=== PATIENT | male | born 1970 | race Two or more races ===

== ENCOUNTER 2016-09-18 06:33 | Emergency (ER) | payer MEDICAID ==
[2016-09-18 07:31] LABS: BASOPHIL % 0.2 % (0-2); PLATELET COUNT 248 x10^3mcL (130-400); RED CELL DISTRIBUTION WIDTH 13.1 % (11.5-14.5)
[2016-09-18 07:36] LABS: CALCIUM 9.1 mg/dL (8.5-10.1); CARBON DIOXIDE 28.8 mmol/L (21-32); CHLORIDE SERUM 103 mmol/L (98-107); GFR1 > 60 mL/min; GLUCOSE SERUM 111 mg/dL (74-106); SODIUM SERUM 137 mmol/L (136-145)
[2016-09-18 08:37] VITALS: BP 109/82
== END 2016-09-18 08:38 | disposition home or self-care (01) ==
LOC: ED 06:33
PROVIDERS: Emergency Medicine
DX: R07.89 Other chest pain (principal)
CPT/HCPCS: 36415; J1885; J2060; Q0092

== ENCOUNTER 2018-01-03 04:58 | Emergency (ER) | payer OTHER ==
[~2018-01-03] VITALS: Ht 170.2 cm; Wt 78.9 kg
[2018-01-03 05:03] VITALS: Ht 170.2 cm; Wt 78.9 kg
[2018-01-03 05:51] LABS: BASOPHIL % 1.1 % (0-2); CALCIUM 9.1 mg/dL (8.5-10.1); CARBON DIOXIDE 25.9 mmol/L (21-32); CHLORIDE SERUM 106 mmol/L (98-107); CREATININE SERUM 0.9 mg/dL (0.7-1.3); GFR1 > 60 mL/min; GLUCOSE SERUM 99 mg/dL (74-106); PLATELET COUNT 265 x10^3mcL (130-400); RED CELL DISTRIBUTION WIDTH 13.6 % (11.5-14.5); SODIUM SERUM 138 mmol/L (136-145)
[2018-01-03 05:56] LABS: ALBUMIN 3.7 g/dL (3.4-5.0); ALKALINE PHOSPHATASE 101 U/L (46-116); ALT/SGPT 30 U/L (16-63); AST/SGOT 15 U/L (15-37); BILIRUBIN TOTAL 0.6 mg/dL (0.20-1.00); LIPASE 173 IU/L (73-393); TOTAL PROTEIN, SERUM 7.8 g/dL (6.4-8.2)
[2018-01-03 07:44] VITALS: BP 107/71
== END 2018-01-03 07:45 | disposition home or self-care (01) ==
LOC: ED 04:58
PROVIDERS: Emergency Medicine
DX: K21.9 Gastro-esophageal reflux disease without esophagitis (principal)
CPT/HCPCS: 36415